=== PATIENT | male | born 1955 | race Caucasian/White ===

== ENCOUNTER 2017-11-01 19:51 | Inpatient (IN) | payer MEDICARE, MEDICAID ==
[~2017-11-01] VITALS: Ht 157.5 cm; Wt 63.5 kg
[2017-11-01] MEDS ORDERED: DEXTROSE 50% WATER 50ML SYRINGE IV ONE (20:45)
[2017-11-01 20:51] LABS: BASOPHILS % 0.8 % (0.0-2.0); EOSINOPHILS % 0.4 % (0.0-5.0); HEMOGLOBIN. 17.1 g/dL (14.0-18.0); LYMPHOCYTES % 8.5 % (20.0-50.0); MEAN CORPUSCULAR HEMOGLOBIN 28.2 pg (28.0-32.0); MEAN CORPUSCULAR VOLUME 85.9 fL (80.0-94.0); MEAN PLATELET VOLUME 8.2 fl (7.4-10.4); MONOCYTES % 10.8 % (2.0-8.0); NEUTROPHILS % 79.5 % (40.0-76.0); PLATELET 205 x1000/uL (130-400); RED BLOOD CELL COUNT 6.06 mill/uL (4.7-6.1); RED CELL DISTRIBUTION WIDTH 15.2 % (11.6-14.6)
[2017-11-01 20:56] LABS: CHLORIDE 108 mEq/L (98-107)
[2017-11-01 21:04] LABS: CREATINE KINASE 108 IU/L (39-308)
[2017-11-01] MEDS ORDERED: ACETAMINOPHEN 650MG SUPP PR PRN (23:30)
[2017-11-01] MEDS ORDERED: HYDROCODONE/ACETAMINOPHEN 10/325MG TABLET PO PRN (23:30)
[2017-11-01] MEDS ORDERED: HYDROCODONE/ACETAMINOPHEN 5/325MG TABLET PO PRN (23:30)
[2017-11-01] MEDS ORDERED: NA PHOS,M-B/NA PHOS,DI-BA ENEMA 118ML PR PRN (23:30)
[2017-11-01] MEDS ORDERED: DIPHENHYDRAMINE 50MG/ML VIAL IV PRN (23:30)
[2017-11-01] MEDS ORDERED: ACETAMINOPHEN 650MG/20.3ML UDC GT PRN (23:30)
[2017-11-01] MEDS ORDERED: DEXT 10% WATER 1,000 ML IV SCH (23:30)
[2017-11-01] MEDS ORDERED: ENOXAPARIN 40MG/0.4ML SYR SUBCUT SCH (23:30)
[2017-11-01] MEDS ORDERED: MAGNESIUM/ALUMINUM HYDROXIDE/SIMETHICONE 30ML UDC PO PRN (23:30)
[2017-11-01] MEDS ORDERED: GUAIFENESIN 200MG/10ML SUGAR FREE UDC PO PRN (23:30)
[2017-11-01] MEDS ORDERED: ACETAMINOPHEN 325MG TABLET PO PRN (23:30)
[2017-11-01] MEDS ORDERED: CLONIDINE 0.1MG TABLET PO PRN (23:30)
[2017-11-01] MEDS ORDERED: DOCUSATE SODIUM 100MG CAPSULE PO PRN (23:30)
[2017-11-01] MEDS ORDERED: IPRATROPIUM/ALBUTEROL 0.5-3(2.5)MG/3ML NEB INH PRN (23:30)
[2017-11-01] MEDS ORDERED: ONDANSETRON HCL 4MG/2ML VIAL IV PRN (23:30)
[2017-11-01 23:35] LABS: CLARITY URINE CLEAR (CLEAR); COLOR URINE YELLOW (YELLOW); KETONES URINE NEGATIVE (NEGATIVE); LEUKOCYTE ESTERASE URINE NEGATIVE (NEGATIVE); NITRITE URINE NEGATIVE (NEGATIVE); OCCULT BLOOD URINE NEGATIVE (NEGATIVE); PROTEIN URINE TRACE (NEGATIVE); SPECIFIC GRAVITY URINE 1.015 (1.005-1.030); UROBILINOGEN URINE 0.2 E.U./dL (0.2-1.0)
[2017-11-01] MEDS ORDERED: DEXTROSE 50% WATER 50ML SYRINGE IV PRN (23:45)
[2017-11-01 23:50] LABS: D-DIMER 0.54 mg/L FEU (<0.50); PROTHROMBIN TIME 10.2 sec (9.4-11.6)
[2017-11-02] MEDS ORDERED: DEXT 5%/0.9% NACL 1,000 ML IV SCH (00:15)
[2017-11-02] MEDS: CLONIDINE 0.1MG TABLET PO PRN (03:15)
[2017-11-02] MEDS ORDERED: MORPHINE SULFATE 4 MG/ML CPJ (NOT FOR IM USE) IV PRN (03:30)
[2017-11-02 05:44] LABS: BASOPHILS % 0.4 % (0.0-2.0); EOSINOPHILS % 0.3 % (0.0-5.0); HEMATOCRIT. 50.8 % (42.0-52.0); HEMOGLOBIN. 16.7 g/dL (14.0-18.0); LYMPHOCYTES % 9.8 % (20.0-50.0); MEAN CORPUSCULAR VOLUME 85.3 fL (80.0-94.0); MEAN PLATELET VOLUME 8.6 fl (7.4-10.4); MONOCYTES % 8.7 % (2.0-8.0); NEUTROPHILS % 80.8 % (40.0-76.0); PLATELET 196 x1000/uL (130-400); RED BLOOD CELL COUNT 5.96 mill/uL (4.7-6.1); RED CELL DISTRIBUTION WIDTH 15.4 % (11.6-14.6)
[2017-11-02 05:51] LABS: CHLORIDE 109 mEq/L (98-107)
[2017-11-02 06:04] LABS: LDL CHOLESTEROL 101 mg/dL (5-100)
[2017-11-02 06:07] LABS: HDL CHOLESTEROL 34 mg/dL (40-59)
[2017-11-02] MEDS: BLOOD SUGAR DIAGNOSTIC STRIP TEST SCH ×4 (07:40→21:57)
[2017-11-02 07:58] VITALS: BP 192/97
[2017-11-02] MEDS: ENOXAPARIN 30MG/0.3ML SYR SUBCUT SCH (08:46)
[2017-11-02] MEDS: SODIUM CHLORIDE 0.9% INJ 3ML FLUSH IVF SCH ×2 (08:47→21:53)
[2017-11-02] MEDS: INSULIN LISPRO 100 UNITS/ML SUBCUT SCH ×4 (08:52→21:00)
[2017-11-02 09:13] VITALS: BP 192/97
[2017-11-02] MEDS ORDERED: AMLODIPINE 10MG TABLET PO SCH (09:15)
[2017-11-02] MEDS ORDERED: SODIUM POLYSTYRENE SULFONATE 15 G/60 ML BOT PO SCH (09:15)
[2017-11-02] MEDS ORDERED: HYDRALAZINE 20MG/ML VIAL IV PRN (09:15)
[2017-11-02] MEDS: SODIUM CHLORIDE 0.9% 1,000 ML IV SCH ×2 (09:22→21:52)
[2017-11-02] MEDS ORDERED: METF-815 PO (09:32)
[2017-11-02] MEDS ORDERED: ATOR40TA70 PO (09:32)
[2017-11-02] MEDS ORDERED: TAMS0.4C31 PO (09:32)
[2017-11-02] MEDS ORDERED: GLIP10TA10 PO (09:32)
[2017-11-02] MEDS ORDERED: BENA20TA3 PO (09:32)
[2017-11-02] MEDS ORDERED: CYCL25CA PO (09:32)
[2017-11-02] MEDS: CYCLOSPORINE, MODIFIED 100MG CAPSULE PO SCH ×2 (12:27→16:53)
[2017-11-02 12:30] VITALS: BP 162/72
[2017-11-02] MEDS ORDERED: INSULIN GLARGINE UD 100 UNITS/ML SYR SUBCUT SCH (13:00)
[2017-11-02] MEDS: PREDNISONE 5MG TABLET PO SCH (13:25)
[2017-11-02] MEDS: INSULIN GLARGINE UD 100 UNITS/ML SYR SUBCUT SCH (13:26)
[2017-11-02 15:12] LABS: *AMPHETAMINES SCREEN URINE NEGATIVE (NEGATIVE); *BARBITURATES SCREEN URINE NEGATIVE (NEGATIVE)
[2017-11-02 15:13] LABS: *BENZODIAZEPINES SCREEN URINE NEGATIVE (NEGATIVE); *COCAINE SCREEN URINE NEGATIVE (NEGATIVE); CANNABINOID URINE SCREEN NEGATIVE (NEGATIVE); METHADONE URINE SCREEN NEGATIVE (NEGATIVE); OPIATES URINE SCREEN NEGATIVE (NEGATIVE); PHENCYCLIDINE URINE SCREEN NEGATIVE (NEGATIVE)
[2017-11-02 16:39] VITALS: BP 184/90
[2017-11-02 17:03] VITALS: BP 166/82
[2017-11-02 20:00] VITALS: BP 145/72
[2017-11-02] MEDS ORDERED: ATORVASTATIN CALCIUM 40MG TABLET PO SCH (21:00)
[2017-11-02] MEDS ORDERED: TAMSULOSIN HCL 0.4MG SR CAPSULE PO SCH ×2 (21:00)
[2017-11-02] MEDS: NIFEDIPINE XL 60MG TAB PO SCH (21:51)
[2017-11-03] VITALS (7 sets, daily range): BP systolic 127–198; BP diastolic 58–93
[2017-11-03] MEDS: CLONIDINE 0.1MG TABLET PO PRN (01:02)
[2017-11-03] MEDS: SODIUM CHLORIDE 0.9% INJ 3ML FLUSH IVF SCH ×2 (06:42→13:41)
[2017-11-03] MEDS: BLOOD SUGAR DIAGNOSTIC STRIP TEST SCH ×3 (06:42→18:09)
[2017-11-03 07:37] LABS: EOSINOPHILS % 0.7 % (0.0-5.0); HEMATOCRIT. 49.5 % (42.0-52.0); HEMOGLOBIN. 16.4 g/dL (14.0-18.0); MEAN CORPUSCULAR HEMOGLOBIN 28.2 pg (28.0-32.0); MEAN PLATELET VOLUME 8.9 fl (7.4-10.4); MONOCYTES % 12.5 % (2.0-8.0); NEUTROPHILS % 65.8 % (40.0-76.0); PLATELET 156 x1000/uL (130-400); RED BLOOD CELL COUNT 5.82 mill/uL (4.7-6.1); RED CELL DISTRIBUTION WIDTH 15.2 % (11.6-14.6)
[2017-11-03 08:11] LABS: CHLORIDE 110 mEq/L (98-107)
[2017-11-03 08:18] LABS: PHOSPHORUS 3.2 mg/dL (2.5-4.9)
[2017-11-03] MEDS: CYCLOSPORINE, MODIFIED 100MG CAPSULE PO SCH ×2 (08:38→18:05)
[2017-11-03] MEDS: PREDNISONE 5MG TABLET PO SCH (08:38)
[2017-11-03] MEDS: ENOXAPARIN 30MG/0.3ML SYR SUBCUT SCH (08:39)
[2017-11-03] MEDS: INSULIN LISPRO 100 UNITS/ML SUBCUT SCH ×3 (08:43→18:29)
[2017-11-03] MEDS: NIFEDIPINE XL 60MG TAB PO SCH (08:48)
[2017-11-03] MEDS ORDERED: AMLODIPINE 10MG TABLET PO SCH (09:00)
[2017-11-03] MEDS: INSULIN GLARGINE UD 100 UNITS/ML SYR SUBCUT SCH (11:15)
[2017-11-03] MEDS: SODIUM CHLORIDE 0.9% 1,000 ML IV SCH (13:30)
[2017-11-03] MEDS ORDERED: ATORVASTATIN CALCIUM 40MG TABLET PO SCH (21:00)
[2017-11-03] MEDS ORDERED: NIFEDIPINE XL 30MG TAB PO SCH (21:00)
[2017-11-04] MEDS ORDERED: INSULIN GLARGINE UD 100 UNITS/ML SYR SUBCUT SCH (10:00)
[2017-11-06] MEDS ORDERED: DEXT 5%/0.9% NACL 1,000 ML IV SCH (00:11)
[2017-11-07 04:17] LABS: CYCLOSPORINE 46 ng/mL (100-400)
[2017-11-07] MEDS ORDERED: DEXT 10% WATER 1,000 ML IV SCH (23:31)
== END 2017-11-03 18:43 | disposition home or self-care (01) | DRG 682 ==
LOC: ER 20:33 → 7WST 22:25 → EDBEDREQ 22:27 → ENRESERV 11-02 03:24
PROVIDERS: ADMIT Family Medicine; ATTEND Family Medicine
DX: N17.0 Acute kidney failure with tubular necrosis (principal); G93.41 Metabolic encephalopathy; Z94.0 Kidney transplant status; E11.22 Type 2 diabetes mellitus with diabetic chronic kidney disease; E11.649 Type 2 diabetes mellitus with hypoglycemia without coma; E78.4 Other hyperlipidemia; N18.9 Chronic kidney disease, unspecified; E86.0 Dehydration; E87.5 Hyperkalemia; H54.7 Unspecified visual loss; I12.9 Hypertensive chronic kidney disease with stage 1 through stage 4 chronic kidney disease, or unspecified chronic kidney disease; N40.0 Benign prostatic hyperplasia without lower urinary tract symptoms; E78.1 Pure hyperglyceridemia; Z89.431 Acquired absence of right foot; Z98.42 Cataract extraction status, left eye; Z98.41 Cataract extraction status, right eye; Z79.4 Long term (current) use of insulin; Z82.49 Family history of ischemic heart disease and other diseases of the circulatory system; Z99.2 Dependence on renal dialysis; Z83.3 Family history of diabetes mellitus
CPT/HCPCS: 36415; 71045; 80053; 80061; 80158; 80305; 81003; 82550; 82962; 83690; 83735; 84100; 84484; 85025; 85379; 85610; 87086; 93005; 96374; 96375; 99285; J0360; J1650; J1815; J2270; J7030; J7042; J7502; J7512